=== PATIENT | male | born 1975 | race Two or more races ===

== ENCOUNTER 2018-02-17 12:17 | Emergency (ER) | payer MEDICAID ==
[~2018-02-17] VITALS: Ht 180.3 cm; Wt 120.0 kg
[2018-02-17] MEDS ORDERED: NITR0.4T49 SL (12:24)
[2018-02-17 13:07] LABS: BASOPHILS % 1.1 % (0.0-2.0); EOSINOPHILS % 2.5 % (0.0-5.0); HEMATOCRIT. 44.1 % (42.0-52.0); HEMOGLOBIN. 14.9 g/dL (14.0-18.0); LYMPHOCYTES % 14.8 % (20.0-50.0); MEAN CORPUSCULAR HEMOGLOBIN 29.1 pg (28.0-32.0); MEAN CORPUSCULAR VOLUME 86.3 fL (80.0-94.0); MONOCYTES % 5.3 % (2.0-8.0); NEUTROPHILS % 76.3 % (40.0-76.0); PLATELET 237 x1000/uL (130-400); RED BLOOD CELL COUNT 5.11 mill/uL (4.7-6.1); RED CELL DISTRIBUTION WIDTH 13.7 % (11.6-14.6)
[2018-02-17 13:13] LABS: CHLORIDE 105 mEq/L (98-107)
[2018-02-17 13:15] LABS: INR 0.9; PROTHROMBIN TIME 9.7 sec (9.4-11.6)
[2018-02-17 14:51] VITALS: BP 142/83
== END 2018-02-17 16:15 | disposition home or self-care (01) ==
LOC: EDSEX 12:17 → ER 12:17
DX: R07.89 Other chest pain (principal); R94.31 Abnormal electrocardiogram [ECG] [EKG]; R03.0 Elevated blood-pressure reading, without diagnosis of hypertension; F14.10 Cocaine abuse, uncomplicated; K83.0 Cholangitis; R74.8 Abnormal levels of other serum enzymes
CPT/HCPCS: 36415; 71045; 80053; 83880; 84484; 85025; 85610; 93005; 99285